=== PATIENT | male | born 1955 | race Caucasian/White ===

== ENCOUNTER 2019-10-02 09:31 | Emergency (ER) | payer OTHER, SELFPAY ==
[~2019-10-02] VITALS: Ht 165.1 cm; Wt 70.0 kg
[2019-10-02 09:37] VITALS: BP 138/72
== END 2019-10-02 10:26 | disposition home or self-care (01) ==
LOC: ER 09:31
DX: Z03.818 Encounter for observation for suspected exposure to other biological agents ruled out (principal)
CPT/HCPCS: 87635; 99283